=== PATIENT | male | born 1995 | race Caucasian/White ===

== ENCOUNTER 2020-05-17 04:24 | Emergency (ER) | payer SELFPAY ==
[2020-05-17 04:43] VITALS: BP 146/84; PULSE 83; TEMP 98.3; BMI 30.4
[2020-05-17] MEDS ORDERED: PSEUDOEPHEDRINE HCL 30 MG TABLET PO ONE (04:57)
[2020-05-17] MEDS ORDERED: PSEUDOEPHEDRINE HCL 60 MG TABLET ONE (05:15)
== END 2020-05-17 06:45 | disposition home or self-care (01) ==
LOC: JER 04:24
DX: R09.81 Nasal congestion (principal); R06.02 Shortness of breath
CPT/HCPCS: 71046-TC-FY; 93005; 93010; 99285-25; C9803; U0003; U0005